=== PATIENT | female | born 1990 | race Caucasian/White ===

== ENCOUNTER 2023-10-27 14:44 | Emergency (ER) | payer MEDICAID ==
[2023-10-27 15:51] LABS: Influenza A by NAA Not Detected (NotDetected); Influenza B by NAA Not Detected (NotDetected); SARS-CoV-2 NAA Rapid Test Not Detected (NotDetected)
== END 2023-10-27 16:25 | disposition home or self-care (01) ==
LOC: CSHERS 14:44
DX: R21 Rash and other nonspecific skin eruption (principal); J06.9 Acute upper respiratory infection, unspecified; I10 Essential (primary) hypertension; F17.290 Nicotine dependence, other tobacco product, uncomplicated
CPT/HCPCS: 87081; 87430; 99283

== ENCOUNTER 2025-05-11 16:29 | Emergency (ER) | payer BC, MEDICAID, SELFPAY ==
[2025-05-11 17:20] LABS: #Basophils 0.08 10x3/uL (0.0-0.2); #Eosinophils 1.24 10x3/uL (0.0-0.5); #Monocytes 0.71 10x3/uL (0.0-1.1); #Neutrophils 2.21 10x3/uL (1.5-8.4); %Basophils 1.1 % (0.0-2.0); %Eosinophils 17.8 % (0.0-6.0); %Lymphocytes 39.1 % (18.0-47.0); %Monocytes 10.2 % (0.0-10.0); %Neutrophils 31.7 % (40.0-75.0); Hematocrit 34.6 % (34.9-44.5); Hemoglobin 11.8 g/dL (12.0-15.5); Mean Corpuscular Hemoglobin 28.7 pg (27.0-33.0); Mean Corpuscular Volume 84.2 fL (81.6-98.3); Platelet Count 455 10x3/uL (150-450); Red Blood Cell (RBC) Count 4.11 10x6/uL (3.90-5.03); White Blood Cell (WBC) Count 6.98 10x3/uL (3.5-10.5)
[2025-05-11 17:36] LABS: ALT (SGPT) 88 U/L (Less than 34); AST (SGOT) 67 U/L (11-34); Albumin 3.9 g/dL (3.1-4.5); Alkaline Phosphatase 59 U/L (40-110); Anion Gap 11 mmol/L (10-20); BUN (Urea Nitrogen) 5 mg/dL (7.0-18.7); Bilirubin, Total 0.5 mg/dL (0.3-1.2); Calc. Creatinine Clearance 0 mL/min (70-130); Calcium 9.4 mg/dL (7.8-10.44); Carbon Dioxide 24 mmol/L (22-29); Chloride 108 mmol/L (98-107); Globulin 3.4 g/dL (2.4-3.5); Glucose 111 mg/dL (70-105); Potassium 3.7 mmol/L (3.5-5.1); Sodium 139 mmol/L (136-145)
[2025-05-11 18:26] LABS: Pregnancy Test - Urine (BHCG) Negative (Negative); Pregu Control Background? CLEAR/WHITE (CLR/WHITE); Pregu Control Bar Appear? YES (CONTROL BAR)
[2025-05-11 18:32] LABS: Cocaine Metabolite Screen Negative (Negative); THC/Cannabinoid Screen PRELIM POSITIVE (Negative); Tricyclic Screen Negative (Negative)
== END 2025-05-12 06:21 ==
LOC: CSHERS 16:29
DX: R45.851 Suicidal ideations (principal); F41.9 Anxiety disorder, unspecified; F32.A Depression, unspecified; I10 Essential (primary) hypertension; F17.290 Nicotine dependence, other tobacco product, uncomplicated
CPT/HCPCS: 36415; 80053; 80306; 81025; 84443; 85025; 93005; 99285